=== PATIENT | female | born 1950 | race Caucasian/White ===

== ENCOUNTER 2023-02-03 13:16 | Observation (INO) | payer BC, SELFPAY ==
[2023-02-03 13:19] VITALS: BP 100/67; PULSE 59; RESP 18; TEMP 35.6; O2SAT 98; BMI 30.6
--- NOTE | 2023-02-03 13:26 | ED_ITS ---
HPI - General Adult General Time Seen by Provider: 13:26 Date Seen: 02/03/23 Chief complaint: Extremity Pain/Injury, Upper Stated complaint: Fall, pain left elbow Time Seen by Provider: 02/03/23 13:24 History of Present Illness HPI narrative: This is a pleasant 72-year-old female who is presenting to the ER today by private car with her friend for evaluation of a fall with left elbow pain. They were at the [facility] today. She is signed up for the bleachers when she lost her balance and fell. Her friend describes her mechanism of injury. 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 When she was leaning forward to grab the 2nd railing, she probably lost her depth perception, then grabbed the railing and then fell forward. She landed on her left side with her elbow extended and out backwards straight underneath her. She has been having pretty severe left elbow pain ever since then. She does not have any other injuries. She may have gently bumped her face but does not really think she hit her head. No headache. No LOC. No visual disturbance. No nausea or vomiting. She does not have any neck pain. No back pain. No injury to her ribs or torso. No abdominal pain. No injury to her right upper extremity. Pelvis and hips are nontender. Lower extremities are uninjured She does not take any anticoagulants. She is having lot of pain in her elbow and keeping it flexed at 90?. She has tremendous apprehension with any attempt to move her elbow. No associated numbness or weakness down her arm. Related Data Home Medications Medication Instructions Recorded Confirmed amoxicillin 500 mg capsule 2,000 mg PO 02/03/23 aspirin 81 mg capsule 81 mg PO DAILY 02/03/23 02/03/23 cetirizine 10 mg capsule (All Day 10 mg PO DAILY PRN 02/03/23 02/03/23 Allergy (cetirizine)) cholecalciferol (vitamin D3) 25 25 mcg PO DAILY 02/03/23 02/03/23 mcg (1,000 unit) capsule cyclobenzaprine 5 mg tablet 5 mg PO 3XD PRN muscle spasm 02/03/23 02/03/23 famotidine 20 mg tablet 20 mg PO BID 02/03/23 02/03/23 folic acid 1 mg tablet 1 mg PO DAILY 02/03/23 02/03/23 gabapentin 100 mg capsule 0 - 300 mg PO BID 02/03/23 02/03/23 hydrocodone 5 mg-acetaminophen 325 1 tab PO Q6H PRN pain 02/03/23 02/03/23 mg tablet insulin glargine 100 unit/mL (3 10 unit subcut QPM 02/03/23 02/03/23 mL) subcutaneous pen (Lantus Solostar U-100 Insulin) insulin lispro 100 unit/mL See Rx Instructions subcut .COMPLEX 02/03/23 02/03/23 subcutaneous pen lansoprazole 30 mg capsule,delayed 30 mg PO DAILY 02/03/23 02/03/23 release lisinopril 2.5 mg tablet 2.5 mg PO DAILY 02/03/23 02/03/23 magnesium oxide 500 mg tablet 500 mg PO DAILY 02/03/23 02/03/23 metformin 500 mg tablet,extended 2,000 mg PO QPM 02/03/23 02/03/23 release 24 hr methotrexate sodium 2.5 mg tablet 15 mg PO QWEEK 02/03/23 02/03/23 metoprolol succinate 25 mg 25 mg PO DAILY 02/03/23 02/03/23 tablet,extended release 24 hr nitroglycerin 0.4 mg sublingual 0.4 mg sublingual Q5M PRN 02/03/23 02/03/23 tablet rosuvastatin 40 mg tablet 40 mg PO DAILY 02/03/23 02/03/23 sennosides 8.6 mg-docusate sodium 2 tab-cap PO DAILY 02/03/23 02/03/23 50 mg tablet (Senexon-S) sertraline 50 mg tablet 50 mg PO DAILY 02/03/23 02/03/23 Allergies Allergy/AdvReac Type Severity Reaction Status Date / Time methotrexate Allergy Verified 02/03/23 13:22 [facility] Medical History (Updated 02/03/23 @ 22:37 by Christen Limon MD) Hypercholesterolemia ?E78.00 - Pure hypercholesterolemia, unspecified (ICD-10) Hypertensive heart disease ?I11.9 - Hypertensive heart disease without heart failure (ICD-10) B12 deficiency anemia ?D51.9 - Vitamin B12 deficiency anemia, unspecified (ICD-10) Psoriatic arthritis ?L40.50 - Arthropathic psoriasis, unspecified (ICD-10) Restless leg syndrome ?G25.81 - Restless legs syndrome (ICD-10) Hyponatremia ?E87.1 - Hypo-osmolality and hyponatremia (ICD-10) Claudication in peripheral vascular disease ?I73.9 - Peripheral vascular disease, unspecified (ICD-10) Systolic CHF ?I50.20 - Unspecified systolic (congestive) heart failure (ICD-10) Psoriasis ?L40.9 - Psoriasis, unspecified (ICD-10) NSTEMI (non-ST elevated myocardial infarction) (~04/27/18) ?I21.4 - Non-ST elevation (NSTEMI) myocardial infarction (ICD-10) Depression ?F32.A - Depression, unspecified (ICD-10) Iron deficiency anemia ?D50.9 - Iron deficiency anemia, unspecified (ICD-10) Hypertension ?I10 - Essential (primary) hypertension (ICD-10) Type 2 diabetes mellitus ?E11.9 - Type 2 diabetes mellitus without complications (ICD-10) Surgical History (Updated 02/03/23 @ 21:17 by Christen Limon MD) History of coronary angioplasty with insertion of stent (~04/27/18) ?Z95.5 - Presence of coronary angioplasty implant and graft (ICD-10) History of bunionectomy ?Z98.890 - Other specified postprocedural states (ICD-10) H/O bilateral cataract extraction (~2014) ?Z98.41 - Cataract extraction status, right eye (ICD-10) ?Z98.42 - Cataract extraction status, left eye (ICD-10) History of total hip arthroplasty ?Z96.649 - Presence of unspecified artificial hip joint (ICD-10) Hx of total knee arthroplasty ?Z96.659 - Presence of unspecified artificial knee joint (ICD-10) H/O eye surgery ?Z98.890 - Other specified postprocedural states (ICD-10) Previous back surgery ?Z98.890 - Other specified postprocedural states (ICD-10) Family History (Updated 02/03/23 @ 21:21 by Christen Limon MD) Brother Parkinsonism Father Diabetes Coronary artery disease Cardiovascular disease Uncle Alzheimers disease Mother Cardiovascular disease Diabetes Kidney disease Aunt Alzheimers disease Skin cancer Sister Sepsis Social History (Updated 02/03/23 @ 22:27 by Christen Limon MD) Narrative: Lives alone. Never . No children. She has a friend who works as a RECOVERY COLLECTOR. Denies tobacco use, quit over 30 years ago. Denies alcohol or recreational drug use. What is your current living situation?: I presently have a place to live Problems where you live: no known problems Problems where you live details: NA In the past 12 months, utilities in danger of being shut off: no In past 12 months, lack of transportation kept you from medical appts, meetings, work, or getting things needed for daily living: no In the past 12 mos, have been you worried that your food would run out before you had money to buy more?: never true In the past 12 mos, the food you bought just didn't last and you didn't have money to buy more?: never true Smoking Status: Former smoker How often do you have a drink containing alcohol: monthly or less AUDIT-C Alcohol total score: 1 Non-prescribed substance use: denies use Caffeine: Yes (rare) How often does anyone, including family, friends and others, physically hurt you : never How often does anyone, including family, friends and others, insult or talk down to you: never How often does anyone, including family, friends and others, threaten you with harm: never How often does anyone, including family, friends and others, scream or curse at you: never service: No Exam Narrative: Exam Narrative: Constitutional: Appears well-developed and well-nourished. Alert. Conversant. Non toxic. HENT: Head: Atraumatic. Nose: Nose normal. No depressed skull fracture, Rac[place] Eyes, Cheek's sign, or hemotympanum. Face normal Mouth/Throat: Oral mucosa is clear and moist. no trismus. Pharynx normal. Tonsils symmetric. No tonsillar enlargement, erythema, or exudate. Eyes: Conjunctivae normal. EOM normal. Pupils equal, round, and reactive to light. No scleral icterus. Neck: Normal range of motion. Neck supple. No tracheal deviation present. No posterior midline tenderness or step-off. Cardiovascular: Normal rate, regular rhythm. No gallop. No friction rub. No murmur heard. Symmetric radial artery pulses . Normal brisk distal capillary refill in both hands. Pulmonary/Chest: Effort normal. No stridor. No respiratory distress. No wheezes. No rales. No rhonchi . No ribcage tenderness. Abdominal: Soft.No distension. No mass. No tenderness. No rebound. No guarding. Musculoskeletal: RUE: Normal range of motion. No tenderness. No deformity LUE: Clavicle nontender. Shoulder nontender. Humeral shaft nontender. Strong brachial pulse. She is holding her left elbow flexed and braced on a pillow. She is tremendously apprehensive with any attempted elbow exam. Range of motion is limited by pain. She is not able to pronate or supinate her forearm. She appears to have swelling and possible deformity of the elbow/proximal forearm. Distal forearm, wrist, hand, digits are nontender. Intact radial pulse. Normal cap refill. Intact radial, median, ulnar motor and sensory function in her hand. RLE: Normal range of motion. No edema. No tenderness. No deformity LLE: Normal range of motion. No edema. No tenderness. No deformity Neurological: Alert and oriented to person, place, and time. Normal strength. CN II-VII intact. No sensory deficit. GCS eye subscore is 4. GCS verbal subscore is 5. GCS motor subscore is 6. Normal coordination Skin: Skin is warm and dry. No rash noted. No pallor. Normal capillary refill. Psychiatric: Normal mood. Normal affect. Const: Vital Signs, click to edit/add: Vital Signs - 24 hr 02/03/23 13:19 02/03/23 16:42 Temperature 96.1 F L 97.2 F L Pulse Rate [Right Pulse Oximeter] 59 L 68 Respiratory Rate 18 [facility] 100/67 137/71 Pulse Oximetry 98 96 Oxygen Delivery Me thod Room Air Room Air Course Vital Signs Vital signs: Initial Vital Signs Temperature 96.1 F L 02/03/23 13:19 Temperature Source Temporal Artery Scan 02/03/23 13:19 Pulse Rate 59 L 02/03/23 13:19 Respiratory Rate 18 02/03/23 13:19 Blood Pressure 100/67 02/03/23 13:19 Blood Pressure Mean 78 02/03/23 13:19 Blood Pressure Position Sitting 02/03/23 13:19 Pulse Oximetry 98 02/03/23 13:19 Oxygen Delivery Method Room Air 02/03/23 13:19 Vital Signs Temperature 96.1 F L 02/03/23 13:19 Pulse Rate 59 L 02/03/23 13:19 Respiratory Rate 18 02/03/23 13:19 Blood Pressure 100/67 02/03/23 13:19 Pulse Oximetry 98 02/03/23 13:19 Oxygen Delivery Method Room Air 02/03/23 13:19 Temperature 97.4 F L 02/03/23 20:00 Pulse Rate 68 02/03/23 16:42 Respiratory Rate 16 02/03/23 20:00 Blood Pressure 134/72 02/03/23 20:00 Pulse Oximetry 98 02/03/23 20:00 Oxygen Delivery Method Room Air 02/03/23 20:00 Medical Decision Making MDM Narrative Medical decision making narrative: Very pleasant 72 year old female presenting to the ER today for isolated left elbow trauma after a mechanical trip and fall that occurred just prior to arrival. At this point there is no history exam evidence for other injuries suc h as intracranial injury, C-spine injury, T or L-spine injury. No evidence for any thoracic or intra-abdominal injury. Other than her left elbow no other meds for other orthopedic or long bone fracture. X-rays of patient's left elbow reveal a complex, comminuted, intra-articular fracture of the left distal humerus. Discussed with our orthopedic team, BOBBY Barber who also consulted with Dr. Diaz. They advised that we consult with [facility] given the complexity of her injury and necessary repair. Repair not necessarily indicated emergently today. Patient would prefer referral to orthopedics at [facility] in [place] where she normally gets her primary care. We wrote a consult with Dr. bro from [facility]. He reviewed images which we transmitted electronically. He does think the patient needs outpatient operative fixation. He will have his clinic contact her on Sunday. Although there is not a need for emergent operative fixation, the patient has a significant injury to the elbow over dominant arm. She is placed into a posterior long-arm splint. She has received oral Newcomb without much improvement in her pain. With and started IV and administered Dilaudid which allowed the patient to rest. At this point she still having too much discomfort in the elbow where she can manage her pain or meet her ADLs at home. She normally lives independently and does not have any close family members who can care for her. She was here with her friend, Kan. She would not feel comfortable discharging home with him and his family and asking for their assistance in her cares. Therefore she will require admission for supportive care. Discussed with our hospitalist Dr. Limon. Dr. Limon graciously agrees to admit the patient under observation status. The hopefully pain will be tolerable in with patient we will to discharge home after consultation with physical therapy so that she can have outpatient orthopedic repair at [facility]. If this is unsuccessful she may require hospital to hospital transfer so she can have her operative fixation at [facility]. She may ultimately require a transfer in to TCU. The patient does have other medical conditions including psoriatic arthritis and diabetes. She is working on getting her home med lists so we can make sure she is on all the proper meds while in the hospital. Imaging Data XR Left Elbow: Attestation: I have reviewed the pertinent imaging results. Radiologist's impression: IMPRESSION: Acute comminuted displaced intra-articular fracture of the distal left humerus. Discharge Plan Discharge Clinical Impression: Fracture of distal end of humerus Patient Disposition: Admitted As Observation
--- NOTE | 2023-02-03 13:34 | CRLHL7_ITS ---
For Patients: As a result of the Cures Act, medical imaging exams and procedure reports are released immediately into your electronic medical record. You may view this report before your referring provider. If you have questions, please contact your health care provider. HISTORY: Fall. TECHNIQUE: Three views of the left elbow. COMPARISON: No prior. FINDINGS: There is an acute comminuted fracture of the distal humerus involving the metaphysis and propagating into the epiphysis. The fracture extends to the articular surface at the level of the trochlea where there is mild displacement at the articular surface. Moderate displacement is noted at the metaphyseal level. No proximal radial or proximal ulnar fracture is apparent. There is no dislocation. IMPRESSION: Acute comminuted displaced intra-articular fracture of the distal left humerus. Dictated by Anastacio Swanson MD @ 02/03/2023 3:24:00 PM Dictated by: Anastacio Swanson MD @ 02/03/2023 15:24:06 (Electronically Signed)
[2023-02-03] MEDS: HYDROCODONE-ACETAMIN 5-325 MG 1 TAB PO (13:44)
[2023-02-03] MEDS: ONDANSETRON ODT 4 MG TAB PO (13:44)
--- NOTE | 2023-02-03 14:11 | ED.NURSE ---
Patient concerned about her blood sugar. Dex com meter shows 128, will continue to monitor but will keep NPO until films are completed.
[2023-02-03 16:42] VITALS: BP 137/71; PULSE 68; TEMP 36.2; O2SAT 96
[2023-02-03] MEDS: HYDROmorphone 0.5 mg/0.5 ml inj IVP (18:36)
[2023-02-03] MEDS: 5 % DEXTROSE/0.9% SOD CHLORIDE 1,000 ML 125 ML IV (19:00)
--- NOTE | 2023-02-03 19:30 | ED.NURSE ---
Blood sugars monitored via personal Dexcom monitor. Sugars have been 130's-120's.
--- NOTE | 2023-02-03 19:58 | ED.NURSE ---
Patient transferred to room 254 via wheelchair. Fluids were stopped for transportation.
[2023-02-03 20:00] VITALS: BP 134/72; RESP 16; TEMP 36.3; O2SAT 98
[2023-02-03 20:52] VITALS: BMI 31.9
[2023-02-03] MEDS: OXYCODONE 5 MG TABLET PO (21:44)
[2023-02-03] MEDS: ACETAMINOPHEN 325 MG TABLET PO (21:44)
[2023-02-03] MEDS: SODIUM CHLORIDE 0.9 % (FLUSH) 10 ML SYRINGE 5 ML IVF (21:44)
--- NOTE | 2023-02-03 22:04 | P.IMHP_ITS ---
Hospitalist- H&P: HPI History of Present Illness Time Seen by Provider: 21:30 Date Seen: 02/03/23 Chief complaint: Fall, pain left elbow Narrative: Dior Hoffman is a 72 year old female with insulin-dependent type 2 diabetes mellitus who presented through the ER for left elbow pain after a fall in the stadium. She was at the [facility] [employer] stadium watching her granddaughter perform and was going up the stairs when she tripped and landed with her arm through the step of the bleacher. She immediately had pain in her left elbow. She originally thought she had hit her face, but does not feel anything on her head or face now. She denies loss of consciousness. She denies any vision changes or headache. She denies any other injuries. She says that she is due for her evening insulin and the last time she had insulin was this morning before breakfast. Review of Systems Status of ROS: Reports: 10 or more systems reviewed and unremarkable except as noted in History and below [facility] Medical History (Updated 02/03/23 @ 22:37 by Christen Limon MD) Hypercholesterolemia ?E78.00 - Pure hypercholesterolemia, unspecified (ICD-10) Hypertensive heart disease ?I11.9 - Hypertensive heart disease without heart failure (ICD-10) B12 deficiency anemia ?D51.9 - Vitamin B12 deficiency anemia, unspecified (ICD-10) Psoriatic arthritis ?L40.50 - Arthropathic psoriasis, unspecified (ICD-10) Restless leg syndrome ?G25.81 - Restless legs syndrome (ICD-10) Hyponatremia ?E87.1 - Hypo-osmolality and hyponatremia (ICD-10) Claudication in peripheral vascular disease ?I73.9 - Peripheral vascular disease, unspecified (ICD-10) Systolic CHF ?I50.20 - Unspecified systolic (congestive) heart failure (ICD-10) Psoriasis ?L40.9 - Psoriasis, unspecified (ICD-10) NSTEMI (non-ST elevated myocardial infarction) (~04/27/18) ?I21.4 - Non-ST elevation (NSTEMI) myocardial infarction (ICD-10) Depression ?F32.A - Depression, unspecified (ICD-10) Iron deficiency anemia ?D50.9 - Iron deficiency anemia, unspecified (ICD-10) Hypertension ?I10 - Essential (primary) hypertension (ICD-10) Type 2 diabetes mellitus ?E11.9 - Type 2 diabetes mellitus without complications (ICD-10) Surgical History (Updated 02/03/23 @ 21:17 by Christen Limon MD) History of coronary angioplasty with insertion of stent (~04/27/18) ?Z95.5 - Presence of coronary angioplasty implant and graft (ICD-10) History of bunionectomy ?Z98.890 - Other specified postprocedural states (ICD-10) H/O bilateral cataract extraction (~2014) ?Z98.41 - Cataract extraction status, right eye (ICD-10) ?Z98.42 - Cataract extraction status, left eye (ICD-10) History of total hip arthroplasty ?Z96.649 - Presence of unspecified artificial hip joint (ICD-10) Hx of total knee arthroplasty ?Z96.659 - Presence of unspecified artificial knee joint (ICD-10) H/O eye surgery ?Z98.890 - Other specified postprocedural states (ICD-10) Previous back surgery ?Z98.890 - Other specified postprocedural states (ICD-10) Family History (Updated 02/03/23 @ 21:21 by Christen Limon MD) Brother Parkinsonism Father Diabetes Coronary artery disease Cardiovascular disease Uncle Alzheimers disease Mother Cardiovascular disease Diabetes Kidney disease Aunt Alzheimers disease Skin cancer Sister Sepsis Social History (Updated 02/03/23 @ 22:27 by Christen Limon MD) Narrative: Lives alone. Never . No children. She has a friend who works as a [employer]. Denies tobacco use, quit over 30 years ago. Denies alcohol or recreational drug use. What is your current living situation?: I presently have a place to live Problems where you live: no known problems Problems where you live details: NA In the past 12 months, utilities in danger of being shut off: no In past 12 months, lack of transportation kept you from medical appts, meetings, work, or getting things needed for daily living: no In the past 12 mos, have been you worried that your food would run out before you had money to buy more?: never true In the past 12 mos, the food you bought just didn't last and you didn't have money to buy more?: never true Smoking Status: Former smoker How often do you have a drink containing alcohol: monthly or less AUDIT-C Alcohol total score: 1 Non-prescribed substance use: denies use Caffeine: Yes (rare) How often does anyone, including family, friends and others, physically hurt you : never How often does anyone, including family, friends and others, insult or talk down to you: never How often does anyone, including family, friends and others, threaten you with harm: never How often does anyone, including family, friends and others, scream or curse at you: never service: No Meds Home Medications and Allergies Home Medications Medication Instructions Recorded Confirmed Type amoxicillin 500 mg capsule 2,000 mg PO 02/03/23 History aspirin 81 mg capsule 81 mg PO DAILY 02/03/23 02/03/23 History cetirizine 10 mg capsule (All Day 10 mg PO DAILY PRN 02/03/23 02/03/23 History Allergy (cetirizine)) cholecalciferol (vitamin D3) 25 25 mcg PO DAILY 02/03/23 02/03/23 History mcg (1,000 unit) capsule cyclobenzaprine 5 mg tablet 5 mg PO 3XD PRN muscle spasm 02/03/23 02/03/23 History famotidine 20 mg tablet 20 mg PO BID 02/03/23 02/03/23 History folic acid 1 mg tablet 1 mg PO DAILY 02/03/23 02/03/23 History gabapentin 100 mg capsule 0 - 300 mg PO BID 02/03/23 02/03/23 History hydrocodone 5 mg-acetaminophen 325 1 tab PO Q6H PRN pain 02/03/23 02/03/23 History mg tablet insulin glargine 100 unit/mL (3 10 unit subcut QPM 02/03/23 02/03/23 History mL) subcutaneous pen (Lantus Solostar U-100 Insulin) insulin lispro 100 unit/mL See Rx Instructions subcut .COMPLEX 02/03/23 02/03/23 History subcutaneous pen lansoprazole 30 mg capsule,delayed 30 mg PO DAILY 02/03/23 02/03/23 History release lisinopril 2.5 mg tablet 2.5 mg PO DAILY 02/03/23 02/03/23 History magnesium oxide 500 mg tablet 500 mg PO DAILY 02/03/23 02/03/23 History metformin 500 mg tablet,extended 2,000 mg PO QPM 02/03/23 02/03/23 History release 24 hr methotrexate sodium 2.5 mg tablet 15 mg PO QWEEK 02/03/23 02/03/23 History metoprolol succinate 25 mg 25 mg PO DAILY 02/03/23 02/03/23 History tablet,extended release 24 hr nitroglycerin 0.4 mg sublingual 0.4 mg sublingual Q5M PRN 02/03/23 02/03/23 History tablet rosuvastatin 40 mg tablet 40 mg PO DAILY 02/03/23 02/03/23 History sennosides 8.6 mg-docusate sodium 2 tab-cap PO DAILY 02/03/23 02/03/23 History 50 mg tablet (Senexon-S) sertraline 50 mg tablet 50 mg PO DAILY 02/03/23 02/03/23 History Allergies Allergy/AdvReac Type Severity Reaction Status Date / Time methotrexate Allergy Verified 02/03/23 13:22 Exam Narrative: Exam Narrative: General: No acute distress. Awake alert oriented x3. HEENT: Normocephalic atraumatic, pupils equally round and reactive to light and accommodation. Oropharynx clear. Mucous membranes are moist. No cervical lymphadenopathy, thyromegaly or carotid bruits. No JVD. Cardiovascular: Regular rate and rhythm. No murmurs, gallops, or rubs. Chest: No increased work of breathing. Clear to auscultation bilaterally. No crackles or wheezes. Abdomen: Bowel sounds present. Soft, nondistended, nontender. No hepatosplenomegaly or masses. Extremities: Left arm is in a long-arm splint with an Aleksandar bandage. No edema of lower extremities, no cyanosis or clubbing. Skin: No jaundice, no pallor, no rashes. Neuro: Left fingers neurovascularly intact. Const: Vital Signs, click to edit/add: Vital Signs - 24 hr 02/03/23 13:19 02/03/23 16:42 02/03/23 20:00 Temperature 96.1 F L 97.2 F L 97.4 F L Pulse Rate [Right Pulse Oximeter] 59 L 68 Respiratory Rate 18 16 Blood Pressure [Ri ght Arm] 134/72 Blood Pressure [Ri ght Upper Arm] 100/67 137/71 Pulse Oximetry 98 96 98 Oxygen Delivery Me thod Room Air Room Air Room Air Hospitalist - H&P: Result Labs Labs: Ordering Physician: Callum Ceballos M.D. Date of Service: 02/03/23 Procedure(s): XR elbow LT min 3V Accession Number(s): [id number] cc: Callum Ceballos M.D.; Provider,Not a Local~ For Patients: As a result of the Cures Act, medical imaging exams and procedure reports are released immediately into your electronic medical record. You may view this report before your referring provider. If you have questions, please contact your health care provider. HISTORY: Fall. TECHNIQUE: Three views of the left elbow. COMPARISON: No prior. FINDINGS: There is an acute comminuted fracture of the distal humerus involving the metaphysis and propagating into the epiphysis. The fracture extends to the articular surface at the level of the trochlea where there is mild displacement at the articular surface. Moderate displacement is noted at the metaphyseal level. No proximal radial or proximal ulnar fracture is apparent. There is no dislocation. IMPRESSION: Acute comminuted displaced intra-articular fracture of the distal left humerus. Dictated by Anastacio Swanson MD @ 02/03/2023 3:24:00 PM Dictated by: Anastacio Swanson MD @ 02/03/2023 15:24:06 (Electronically Signed) Assessment and Plan Assessment and plan (1) Fracture of distal end of humerus: Problem comment: - Painful and unable to care for self at home. Hoping to set up [employer] friend to come to house tomorrow. Admit for observation for pain control, PT and OT evaluations. If she remains unable to care for self, may need SNF. - [place] aware of patient and will call her to schedule outpatient surgery. - Pain control with prn oxycodone. Uses hydrocodone at home, which will need to be held while she is taking oxycodone. Status: Acute (2) Type 2 diabetes mellitus: Problem comment: Continue home insulin regimen and metformin and add ISS Status: Chronic (3) Psoriatic arthritis: Problem comment: Due for methotrexate dose today. This is held. Status: Chronic
--- NOTE | 2023-02-03 22:23 | PC.NURSE ---
Admit 1999- Patient arrives from ED via wheelchair. Left arm in splint- patient holds close to body with right arm. She appears to have increased pain with movement of left arm, she rates pain up to 7/10 this evening- PRN pain medication provided. Her dexcom reading at 2009 for blood glucose is 145. Appetite intact. She is alert and oriented. Will administer insulin when verified by pharmacy.
[2023-02-03 23:00] VITALS: BP 107/55; RESP 16; TEMP 36.8; O2SAT 93; O2SAT 94
[2023-02-04 03:00] VITALS: RESP 16; O2SAT 91
[2023-02-04] MEDS: OXYCODONE 5 MG TABLET PO ×2 (06:41→10:06)
--- NOTE | 2023-02-04 06:51 | PC.NURSE ---
Shift note: Pain in left upper extremity 11/13 treated per eMAR with relief, pt is able to rest
[2023-02-04 07:00] VITALS: BP 119/53; RESP 16; TEMP 36.8; O2SAT 96
[2023-02-04] MEDS: lisinopriL 5 MG TABLET 2.5 MG PO (10:03)
[2023-02-04] MEDS: OMEPRAZOLE 20 MG CAPSULE DR 30 MG PO (10:06)
[2023-02-04] MEDS: GABAPENTIN 100 MG CAPSULE PO (10:06)
[2023-02-04] MEDS: ROSUVASTATIN CALCIUM 10 MG TABLET 40 MG PO (10:08)
[2023-02-04] MEDS: SENNOSIDES/DOCUSATE TABLET 2 TAB PO (10:08)
[2023-02-04] MEDS: METOPROLOL SUCCINATE (XL) 25 MG TAB PO (10:08)
[2023-02-04] MEDS: FAMOTIDINE 20 MG TABLET PO (10:08)
[2023-02-04] MEDS: ASPIRIN 81 MG TABLET EC PO (10:09)
[2023-02-04] MEDS: FOLIC ACID 1 MG TABLET PO (10:09)
[2023-02-04] MEDS: MAGNESIUM OXIDE 400 MG TABLET PO (10:09)
[2023-02-04] MEDS: SERTRALINE 50 MG TABLET PO (10:10)
[2023-02-04] MEDS: SODIUM CHLORIDE 0.9 % (FLUSH) 10 ML SYRINGE 5 ML IVF (10:19)
--- NOTE | 2023-02-04 13:23 | PC.NURSE ---
Discharge Note: Pt friendly and cooperative. Able to verbalize needs. Worked with PT/OT this morning and has been able to accomplish ADL's independently. Rates pain 5/10, increased to 8/10 with movement, PRN Oxy given. Good radial pulse on LUE, warm and cap refill less Pt elevating and icing as tolerated. Sling placed by therapy. To follow up with [facility] on Sunday for surgical consult. Pt and her son verbalized understanding of discharge instructions. She was was discharged to home via wheelchair in the care of her son at 1311.
--- NOTE | 2023-02-04 15:15 | PM.DS1 ---
DS: Providers Provider Date Seen: 02/04/23 Date of admission: 02/03/23 19:40 Primary care physician: Not a Local Provider Admitting Clinician: Christen Limon MD Attending Physician on discharge: Simone Hsu MD Date of Discharge: 02/04/23 DS: Diagnosis Discharge Diagnosis (1) Fracture of distal end of humerus: Status: Acute Problem details: Patient admitted because she was unable to manage pain and ADLs last evening in the emergency department after her fall with humerus fracture. Overnight her pain control is improved and she has managed to work out managing her ADLs with therapy today. (2) Type 2 diabetes mellitus: Status: Chronic (3) Psoriatic arthritis: Status: Chronic DS: Summary Hospital Course Hospital Course: 72-year-old left-handed female with diabetes mellitus admitted through the emergency department with a fall leading to a displaced distal humerus fracture. Admitted because she was unable to manage the pain and any activities of daily living. Overnight she has had improvement in her pain control and has worked with therapy and feels confident she is going to be able to manage ADLs with the assistance of a friend. Patient is requested returning to home in [place] and arrangements are already initiated to get orthopedic follow-up in [place]. Status at Discharge Functional status at discharge: independent ambulation Overall status at discharge: patient is progressing back to baseline Time Spent with Patient Time attestation: Total time spent providing and/or coordinating discharge services: Total time spent is 45 minutes, 30 minutes in coordination of care discussing with patient and other providers management of pain and disability related to humerus fracture. Exam Narrative: Exam Narrative: She is alert and appears in no distress. Breathing is unlabored. Left upper extremity is in a splint. Examination of her finger tip so she has brisk capillary refill, mild edema, intact sensation, intact motion in all 5 fingers flexion and extension. Const: Vital Signs, click to edit/add: Vital Signs - 24 hr 02/03/23 16:42 02/03/23 20:00 02/03/23 23:00 Temperature 97.2 F L 97.4 F L Pulse Rate [Right Pulse Oximeter] 68 Respiratory Rate 16 Blood Pressure [Ri ght Arm] 134/72 Blood Pressure [Ri ght Upper Arm] 137/71 Pulse Oximetry 96 98 93 Oxygen Delivery Me thod Room Air Room Air 02/03/23 23:00 02/03/23 23:00 02/03/23 23:00 Temperature 98.3 F Pulse Rate [Right Pulse Oximeter] Respiratory Rate 16 16 16 Blood Pressure [Ri ght Arm] 107/55 L Blood Pressure [Ri ght Upper Arm] Pulse Oximetry 94 93 Oxygen Delivery Me thod Room Air Room Air 02/04/23 03:00 02/04/23 07:00 02/04/23 07:00 Temperature Pulse Rate [Right Pulse Oximeter] Respiratory Rate 16 16 Blood Pressure [Ri ght Arm] Blood Pressure [Ri ght Upper Arm] Pulse Oximetry 91 96 Oxygen Delivery Me thod Room Air 02/04/23 07:00 02/04/23 07:00 Temperature 98.3 F Pulse Rate [Right Pulse Oximeter] Respiratory Rate 16 16 Blood Pressure [Ri ght Arm] 119/53 L Blood Pressure [Ri ght Upper Arm] Pulse Oximetry 96 96 Oxygen Delivery Me thod Room Air Room Air Documenting provider has reviewed patient's vital signs: yes Discharge Plan Discharge Disposition: Home, Self-Care Date of Admission: 02/03/23 19:40 Attending Provider on Discharge: Selvin Hsu Primary Care Provider: Provider,Not a Local Condition: Improved Anticipated Discharge Date/Time: 02/04/23 12:19 Discharge Medications: New oxycodone 5 mg Tablet 5 - 10 mg PO Q4H PRN (Reason: Pain) Qty: 40 0RF sennosides [senna] 8.6 mg tablet 17.2 mg PO BID Qty: 60 0RF Continued methotrexate sodium 2.5 mg tablet 15 mg PO QWEEK nitroglycerin 0.4 mg tablet, sublingual 0.4 mg sublingual Q5M PRN metoprolol succinate 25 mg tablet extended release 24 hr 25 mg PO DAILY metformin 500 mg tablet extended release 24 hr 2,000 mg PO QPM amoxicillin 500 mg capsule 2,000 mg PO .COMPLEX Rx Instructions: 2,000 mg orally 1 HOUR BEFORE DENTAL APPTS; cholecalciferol (vitamin D3) 25 mcg (1,000 unit) capsule 25 mcg PO DAILY magnesium oxide 500 mg tablet 500 mg PO DAILY All Day Allergy (cetirizine) 10 mg capsule 10 mg PO DAILY PRN aspirin 81 mg capsule 81 mg PO DAILY sennosides-docusate sodium [Senexon-S] 8.6-50 mg tablet 2 tab-cap PO DAILY hydrocodone-acetaminophen 5-325 mg tablet 1 tab PO Q6H PRN (Reason: pain) lansoprazole 30 mg capsule,delayed release(DR/EC) 30 mg PO DAILY folic acid 1 mg tablet 1 mg PO DAILY gabapentin 100 mg capsule 0 - 300 mg PO BID sertraline 50 mg tablet 50 mg PO DAILY lisinopril 2.5 mg tablet 2.5 mg PO DAILY insulin lispro 100 unit/mL insulin pen See Rx Instructions subcut .COMPLEX Rx Instructions: 4 units with breakfast, 4 units with lunch, 6 units with dinner cyclobenzaprine 5 mg tablet 5 mg PO TID PRN (Reason: muscle spasm) rosuvastatin 40 mg tablet 40 mg PO DAILY insulin glargine [Lantus Solostar U-100 Insulin] 100 unit/mL (3 mL) insulin pen 10 unit subcut QPM famotidine 20 mg tablet 20 mg PO BID Discharge Orders: Discharge Order (Routine); Ordered 02/04/23 Ordered By: Selvin Hsu Patient Education: Oxycodone, Rapid Release (By mouth), Senna (By mouth), Elbow Fracture (DC) Additional Instructions: When sitting or in bed apply an ice pack to your elbow and raise your elbow on a pillow. Follow-up with your orthopedic doctor this week. Activity Level: Activity as Tolerated Discharge Diet: Regular Follow Up Appointments: Provider,Not a Local [Primary Care Provider] - Forms: MyHealth Info Instructions
== END 2023-02-04 13:36 | disposition home or self-care (01) ==
LOC: ED 19:08 → MEDSURG 19:42
PROVIDERS: Admitting Provider Family Medicine; Emergency Provider Emergency Medicine; Visit Provider Family Medicine
DX: S42.202A Unspecified fracture of upper end of left humerus, initial encounter for closed fracture (principal); L40.50 Arthropathic psoriasis, unspecified; M25.522 Pain in left elbow; E11.9 Type 2 diabetes mellitus without complications; W19.XXXA Unspecified fall, initial encounter; I10 Essential (primary) hypertension; Z79.82 Long term (current) use of aspirin; Z79.4 Long term (current) use of insulin; Z79.84 Long term (current) use of oral hypoglycemic drugs; Z95.5 Presence of coronary angioplasty implant and graft; Z98.890 Other specified postprocedural states; Z98.41 Cataract extraction status, right eye; Z98.42 Cataract extraction status, left eye; Z96.649 Presence of unspecified artificial hip joint; Z96.659 Presence of unspecified artificial knee joint; Z87.891 Personal history of nicotine dependence
CPT/HCPCS: 29105; 29505; 73080; 82947; 82962; 96372; 96374; 96375; 97161; 97165; 97530; 97535; 99283; 99285; A9270; G0378; J1170; J7042